=== PATIENT | male | born 1985 | race Two or more races ===

== ENCOUNTER 2025-08-06 10:01 | Emergency (ER) | payer MEDICAID ==
[~2025-08-06] VITALS: Ht 180.3 cm; Wt 74.8 kg
[2025-08-06] MEDS ORDERED: LORAZEPAM 1 MG TABLET ONE ×2 (10:54→11:51)
[2025-08-06] MEDS: LORAZEPAM 1 MG TABLET PO ONE ×2 (10:55→11:53)
[2025-08-06] MEDS ORDERED: CHLO25CA22 PO (11:44)
[2025-08-06 12:16] VITALS: BP 142/89; TEMP 97.7; O2SAT 99
== END 2025-08-06 12:16 | disposition home or self-care (01) ==
LOC: ER 10:07
DX: F41.0 Panic disorder [episodic paroxysmal anxiety] (principal); F15.10 Other stimulant abuse, uncomplicated; F10.239 Alcohol dependence with withdrawal, unspecified; Y90.9 Presence of alcohol in blood, level not specified